=== PATIENT | male | born 1990 | race Caucasian/White ===

== ENCOUNTER 2019-04-18 10:00 | Outpatient (CLI) | payer SELFPAY ==
[2019-04-18 11:09] LABS: HEMOGLOBIN A1C 4.8 % (4.5-6.2)
[2019-04-18 11:11] LABS: CHOL/HDL RATIO 1.98 (0.00-4.99)
== END 2019-04-18 23:59 | disposition home or self-care (01) ==
LOC: HW HEART 10:00
DX: Z13.6 Encounter for screening for cardiovascular disorders (principal)
CPT/HCPCS: 36415

== ENCOUNTER 2019-07-26 10:35 | Outpatient (CLI) | payer OTHER | END 2019-07-26 23:59 | disposition home or self-care (01) | LOC: RAD 10:35 | PROVIDERS: ATTEND Psychiatry & Neurology Neurology | DX: R42 Dizziness and giddiness (principal) | CPT/HCPCS: 95816 ==

== ENCOUNTER 2022-04-19 08:37 | Outpatient (CLI) | payer BC, OTHER ==
[2022-04-19] MEDS ORDERED: GADOTERATE MEGLUMINE 10 MMOL/20 ML SYRINGE IV ONE (09:57)
== END 2022-04-19 23:59 | disposition home or self-care (01) ==
LOC: RAD 08:37
PROVIDERS: ATTEND Internal Medicine
DX: R55 Syncope and collapse (principal); R42 Dizziness and giddiness; J34.89 Other specified disorders of nose and nasal sinuses
CPT/HCPCS: 70553; A9575